=== PATIENT | male | born 1970 | race Caucasian/White ===

== ENCOUNTER 2020-06-05 14:30 | Inpatient (IN) ==
[2020-06-05] MEDS ORDERED: SODIUM CHLORIDE 0.9% 2,000 ML IV STA (14:37)
[2020-06-05] MEDS ORDERED: DILTIAZEM 50 MG/10 ML VIAL IV STA ×3 (15:02→16:25)
[2020-06-05 15:10] LABS: Basophils # 0.2 10*3/uL (0.0-0.2); Basophils % 0.4 % (0.0-0.8); Hematocrit 33.1 VOL% (42.0-52.0); Hemoglobin 11.5 GM/DL (14.0-18.0); Immature Granulocytes % 1.5 %; Immature Granulocytes Absolute 0.54 #; Lymphocytes % 2.8 % (21.2-54.2); Mean Corpuscular HGB Conc 34.7 GM/DL (32-36); Mean Corpuscular Volume 84.4 FL (87-102); Monocytes % 3.8 % (1.7-12.7); Neutrophils % 91.5 % (38.7-73.9); Platelet Count 249 T/CUMM (130-400); Red Blood Count 3.92 MC/CUMM (3.8-5.5); Red Cell Distribution Width 13.5 % (9.3-17.3); White Blood Count 36.7 T/CUMM (4-12)
[2020-06-05 15:19] LABS: INR 1.3; PT Patient Result 13.4 SECS (9.8-11.9); Partial Thromboplastin Time 28.8 SECS (23.9-33.8)
[2020-06-05] MEDS: dilTIAZem Drip 125 MG/125 ML PREMIX IV SCH ×2 (15:25→23:30)
[2020-06-05 15:30] LABS: Barbiturates Screen,Urine Negative (Negative); Benzodiazepines Screen,Urine Negative (Negative); Cannabinoid Screen,Urine Positive (Negative); Opiate Screen,Urine Negative (Negative); Phencyclidine Screen,Urine Negative (Negative)
[2020-06-05 15:31] LABS: Apearance,Urine CLOUDY (Clear); Bacteria,Urine Many /HPF (Few); Bilirubin,Urine Negative (Negative); Blood, Urine Moderate mg/dL (Negative); Glucose,Urine (UA) >=500 mg/dL (Negative); Hyaline Casts,Urine 12 /LPF (0-3); Ketones,Urine 5 mg/dL (Negative); Mucus,Urine Moderate /LPF (Occasional); Nitrite,Urine Negative (Negative); Protein,Urine 100 MG/DL; RBC,Urine 13 /HPF (0-4); Squamous Epithelial Cell,Urine Occasional /HPF (0-10); Urine Color Amber (Yellow); Urine Specific Gravity 1.026 (1.001-1.035); WBC,Urine 85 /HPF (0-6)
[2020-06-05 15:41] LABS: Alanine Aminotransferase 15 U/L (16-61); Albumin 1.6 G/DL (3.4-5.0); Alkaline Phosphatase 118 U/L (45-117); Aspartate Amino Transferase 28 U/L (0-37); Blood Urea Nitrogen 29 MG/DL (7-18); Calcium 7.7 MG/DL (8.5-10.1); Estimated Glom Filtration Rate 100 ML/MIN; Glucose 297 MG/DL (74-106); Osmolality,Calculated 271.2 MOS/KG (273-304); Total Protein 6.5 G/DL (6.4-8.3)
[2020-06-05 15:42] LABS: Band Neutrophils 3 % (0-10); Lymphocytes 2 % (20-55); Segmented Neutrophils 94 % (50-85); Total Cells Counted 100
[2020-06-05 15:43] LABS: Hypochromasia Slight; Microcytosis Slight; Platelet Estimate Normal
[2020-06-05] MEDS ORDERED: PIPERACILLIN/TAZOBACTAM 3,375 MG in SODIUM CHLORIDE 0.9% 100 ML IV STA (15:43)
[2020-06-05] MEDS ORDERED: SODIUM CHLORIDE 0.9% 1,000 ML IV STA (15:43)
[2020-06-05 15:47] LABS: ABG Base Excess -2.6 MMOL/L (-2.5-2.5); ABG HCO3 22.2 MMOL/L (20-26); ABG Oxygen Saturation 98.5 % (95-100); ABG PCO2 28.1 MM HG (35-48); ABG PH 7.462 (7.35-7.45); ABG TCO2 17.8 MMOL/L (23-27)
[2020-06-05] MEDS ORDERED: ONDANSETRON 4 MG/2 ML VIAL IV PRN (16:40)
[2020-06-05] MEDS ORDERED: ALBUTEROL 2.5 MG/3 ML NEB RESP TX PRN (16:40)
[2020-06-05 17:13] LABS: Thyroid Stimulating Hormone 0.62 uIU/ml (0.358-3.74)
[2020-06-05] MEDS: SODIUM CHLORIDE 0.9% 1,000 ML IV SCH (17:24)
[2020-06-05] MEDS: INSULIN LISPRO 100 UNIT/ML SUBCUT SCH ×2 (18:22→23:44)
[2020-06-05] MEDS: VANCOMYCIN INJ 2,000 MG in SODIUM CHLORIDE 0.9% 500 ML IV SCH (20:30)
[2020-06-05] MEDS ORDERED: ENOXAPARIN 40 MG/0.4 ML SYRINGE SUBCUT SCH (21:00)
[2020-06-05] MEDS ORDERED: DIGOXIN 0.5 MG/2 ML AMP IV ONE ×2 (22:28→23:30)
[2020-06-05] MEDS: PIPERACILLIN/TAZOBACTAM 3,375 MG in SODIUM CHLORIDE 0.9% 100 ML IV SCH (23:40)
[2020-06-06 01:57] LABS: Basophils # 0.1 10*3/uL (0.0-0.2); Basophils % 0.2 % (0.0-0.8); Hematocrit 29.9 VOL% (42.0-52.0); Hemoglobin 10.2 GM/DL (14.0-18.0); Immature Granulocytes % 1.2 %; Immature Granulocytes Absolute 0.37 #; Lymphocytes # 1.3 10*3/uL (1.4-4.0); Lymphocytes % 4.4 % (21.2-54.2); Mean Corpuscular HGB Conc 34.1 GM/DL (32-36); Mean Corpuscular Volume 85.9 FL (87-102); Mean Platelet Volume 9.9 FL (9.6-12.0); Monocytes % 4.2 % (1.7-12.7); Platelet Count 199 T/CUMM (130-400); Red Blood Count 3.48 MC/CUMM (3.8-5.5); Red Cell Distribution Width 13.5 % (9.3-17.3); White Blood Count 29.7 T/CUMM (4-12)
[2020-06-06 02:16] LABS: Albumin 1.3 G/DL (3.4-5.0); Bilirubin,Total 0.6 MG/DL (0.2-1.0); Calcium 7.8 MG/DL (8.5-10.1); Osmolality,Calculated 276.5 MOS/KG (273-304); Total Protein 6.6 G/DL (6.4-8.3)
[2020-06-06 02:27] LABS: Lymphocytes 5 % (20-55); Segmented Neutrophils 93 % (50-85); Total Cells Counted 100
[2020-06-06 02:28] LABS: Anisocytosis Slight; Platelet Estimate Normal
[2020-06-06 02:30] LABS: Microcytosis 2+; Polychromasia Slight
[2020-06-06] MEDS: SODIUM CHLORIDE 0.9% 1,000 ML IV SCH ×3 (03:24→23:32)
[2020-06-06 04:36] LABS: ABG Base Excess 0.3 MMOL/L (-2.5-2.5); ABG HCO3 24.7 MMOL/L (20-26); ABG Oxygen Saturation 95.6 % (95-100); ABG PCO2 28.8 MM HG (35-48); ABG PH 7.498 (7.35-7.45); ABG PO2 75.8 MM HG (80-95); ABG TCO2 19.3 MMOL/L (23-27); Allen Test Positive
[2020-06-06] MEDS: INSULIN LISPRO 100 UNIT/ML SUBCUT SCH ×3 (06:23→17:31)
[2020-06-06] MEDS ORDERED: PANTOPRAZOLE 40 MG TABLET PO SCH (09:00)
[2020-06-06] MEDS: VANCOMYCIN INJ 2,000 MG in SODIUM CHLORIDE 0.9% 500 ML IV SCH ×2 (09:07→20:59)
[2020-06-06] MEDS ORDERED: ETOMIDATE 20 MG/10 ML VIAL IV ONE ×2 (09:14→09:19)
[2020-06-06] MEDS ORDERED: SUCCINYLCHOLINE 200 MG/10 ML VIAL ONE (09:14)
[2020-06-06] MEDS ORDERED: SUCCINYLCHOLINE 200 MG/10 ML VIAL IV ONE (09:20)
[2020-06-06 10:20] LABS: ABG Base Excess -1.7 MMOL/L (-2.5-2.5); ABG HCO3 22.9 MMOL/L (20-26); ABG Oxygen Saturation 99.2 % (95-100); ABG PCO2 38.4 MM HG (35-48); ABG PH 7.394 (7.35-7.45); ABG TCO2 24.1 MMOL/L (23-27)
[2020-06-06] MEDS: PIPERACILLIN/TAZOBACTAM 3,375 MG in SODIUM CHLORIDE 0.9% 100 ML IV SCH ×2 (11:26→16:34)
[2020-06-06] MEDS: fentaNYL INJ 1,250 MCG in SODIUM CHLORIDE 0.9% 225 ML IV PRN ×2 (11:27→20:12)
[2020-06-06] MEDS: ACETAMINOPHEN 325 MG TABLET PO PRN ×2 (12:53→23:42)
[2020-06-06 15:01] LABS: HDL Cholesterol < 10 MG/DL (40-60); Triglycerides 233 MG/DL (2-150); VLDL CHOLESTEROL 46.6 MG/DL
[2020-06-06] MEDS: dilTIAZem Drip 125 MG/125 ML PREMIX IV SCH (16:05)
[2020-06-06] MEDS: INSULIN GLARGINE 100 UNIT/ML SUBCUT SCH (21:38)
[2020-06-06] MEDS: ENOXAPARIN 30 MG/0.3 ML SYRINGE SUBCUT SCH (21:38)
[2020-06-07] MEDS: INSULIN LISPRO 100 UNIT/ML SUBCUT SCH ×4 (01:09→17:41)
[2020-06-07] MEDS: PIPERACILLIN/TAZOBACTAM 3,375 MG in SODIUM CHLORIDE 0.9% 100 ML IV SCH ×3 (01:09→17:40)
[2020-06-07 05:15] LABS: Allen Test Positive; Pt O2 Delivery Device Ventilator
[2020-06-07 05:17] LABS: ABG Base Excess 0.4 MMOL/L (-2.5-2.5); ABG HCO3 24.8 MMOL/L (20-26); ABG Oxygen Saturation 99.3 % (95-100); ABG PCO2 35.7 MM HG (35-48); ABG PH 7.441 (7.35-7.45); ABG TCO2 21.9 MMOL/L (23-27)
[2020-06-07 05:37] LABS: Basophils # 0.1 10*3/uL (0.0-0.2); Basophils % 0.2 % (0.0-0.8); Hematocrit 28.3 VOL% (42.0-52.0); Hemoglobin 9.3 GM/DL (14.0-18.0); Immature Granulocytes % 1.4 %; Immature Granulocytes Absolute 0.32 #; Lymphocytes # 1.2 10*3/uL (1.4-4.0); Lymphocytes % 5.2 % (21.2-54.2); Mean Corpuscular HGB Conc 32.9 GM/DL (32-36); Mean Corpuscular Volume 89.3 FL (87-102); Mean Platelet Volume 10.3 FL (9.6-12.0); Monocytes % 4.5 % (1.7-12.7); Neutrophils % 88.7 % (38.7-73.9); Platelet Count 190 T/CUMM (130-400); Red Blood Count 3.17 MC/CUMM (3.8-5.5); Red Cell Distribution Width 13.8 % (9.3-17.3); White Blood Count 23.3 T/CUMM (4-12)
[2020-06-07 06:06] LABS: Albumin 1.3 G/DL (3.4-5.0); Bilirubin,Total 0.7 MG/DL (0.2-1.0); Calcium 7.6 MG/DL (8.5-10.1); Osmolality,Calculated 295.1 MOS/KG (273-304); Total Protein 5.9 G/DL (6.4-8.3)
[2020-06-07 06:31] LABS: Anisocytosis 2+; Band Neutrophils 2 % (0-10); Lymphocytes 6 % (20-55); Macrocytosis 1+; Microcytosis 1+; Platelet Estimate Normal; Segmented Neutrophils 87 % (50-85); Total Cells Counted 100
[2020-06-07] MEDS: dilTIAZem Drip 125 MG/125 ML PREMIX IV SCH ×2 (08:27→14:29)
[2020-06-07] MEDS: SODIUM CHLORIDE 0.9% 1,000 ML IV SCH ×2 (08:27→23:38)
[2020-06-07] MEDS: VANCOMYCIN INJ 2,000 MG in SODIUM CHLORIDE 0.9% 500 ML IV SCH ×2 (09:24→20:26)
[2020-06-07] MEDS: ATORVASTATIN 10 MG TABLET PER TUBE SCH (11:32)
[2020-06-07] MEDS: PANTOPRAZOLE 40 MG VIAL IV SCH (11:33)
[2020-06-07] MEDS: ACETAMINOPHEN 325 MG TABLET PO PRN ×2 (12:29→21:56)
[2020-06-07] MEDS: ASPIRIN CHEW 81 MG TABLET PO SCH (13:40)
[2020-06-07 15:30] LABS: Osmolality, Serum 290 mOsm/kg (275 - 295)
[2020-06-07 15:40] LABS: Osmolality, Urine 692 mOsm/kg (150 - 1150)
[2020-06-07 20:25] VITALS: BP 114/58
[2020-06-07] MEDS: ENOXAPARIN 30 MG/0.3 ML SYRINGE SUBCUT SCH (20:26)
[2020-06-07] MEDS: INSULIN GLARGINE 100 UNIT/ML SUBCUT SCH (20:26)
[2020-06-08] MEDS: INSULIN LISPRO 100 UNIT/ML SUBCUT SCH ×2 (00:59→05:51)
[2020-06-08] MEDS: PIPERACILLIN/TAZOBACTAM 3,375 MG in SODIUM CHLORIDE 0.9% 100 ML IV SCH ×2 (00:59→08:18)
[2020-06-08] MEDS: ACETAMINOPHEN 325 MG TABLET PO PRN (03:55)
[2020-06-08 04:16] LABS: ABG Base Excess -7.3 MMOL/L (-2.5-2.5); ABG HCO3 14.9 MMOL/L (20-26); ABG Oxygen Saturation 97.5 % (95-100); ABG PCO2 21.7 MM HG (35-48); ABG PH 7.454 (7.35-7.45); ABG PO2 112.4 MM HG (80-95); ABG TCO2 15.5 MMOL/L (23-27)
[2020-06-08] MEDS ORDERED: NOREPINEPHRINE 4 MG/4 ML VIAL IV ONE (04:50)
[2020-06-08] MEDS ORDERED: NOREPINEPHRINE 8 MG in SODIUM CHLORIDE 0.9% 242 ML IV PRN (04:58)
[2020-06-08] MEDS ORDERED: SODIUM CHLORIDE 0.9% 1,000 ML IV ONE (04:58)
[2020-06-08 05:30] LABS: Basophils % 0.3 % (0.0-0.8); Eosinophils % 0.1 % (0.00-10.9); Hematocrit 29.2 VOL% (42.0-52.0); Immature Granulocytes % 2.8 %; Immature Granulocytes Absolute 0.45 #; Lymphocytes % 18.8 % (21.2-54.2); Mean Corpuscular HGB Conc 30.8 GM/DL (32-36); Mean Corpuscular Volume 95.1 FL (87-102); Mean Platelet Volume 12.2 FL (9.6-12.0); Monocytes % 5.6 % (1.7-12.7); Neutrophils % 72.4 % (38.7-73.9); Red Blood Count 3.07 MC/CUMM (3.8-5.5); Red Cell Distribution Width 14.2 % (9.3-17.3); White Blood Count 15.9 T/CUMM (4-12)
[2020-06-08 05:36] LABS: Platelet Count 104 T/CUMM (130-400)
[2020-06-08] MEDS ORDERED: DEXTROSE 10% 250 ML BAG IV PRN (05:46)
[2020-06-08 06:29] LABS: Anisocytosis 2+; Band Neutrophils 10 % (0-10); Lymphocytes 21 % (20-55); Platelet Estimate Adequate; Segmented Neutrophils 65 % (50-85); Smudge Cells Few; Spherocytes Few; Total Cells Counted 100
[2020-06-08 07:03] LABS: Albumin 1.3 G/DL (3.4-5.0); Bilirubin,Total 0.85 MG/DL (0.2-1.0); Osmolality,Calculated 300.7 MOS/KG (273-304); Total Protein 6.6 G/DL (6.4-8.3)
[2020-06-08] MEDS: ATORVASTATIN 10 MG TABLET PER TUBE SCH (10:24)
[2020-06-08] MEDS: PANTOPRAZOLE 40 MG VIAL IV SCH (10:24)
[2020-06-08] MEDS: ASPIRIN CHEW 81 MG TABLET PO SCH (10:24)
== END 2020-06-08 08:40 | disposition expired | DRG 64 ==
LOC: EDUNIT# → EDBD → N.ED 14:30 → N.EDINP 16:03 → N.ICU 17:52
PROVIDERS: ADMIT Internal Medicine; ATTEND Internal Medicine